=== PATIENT | female | born 1955 | race Caucasian/White ===

== ENCOUNTER 2018-04-28 13:25 | Outpatient (REF) | payer BC, SELFPAY ==
--- NOTE | 2018-04-28 11:30 | PAPFT_PTH ---
PATIENT: Brianna Bernal LOC: [facility] U#:[id number] AGE/SX: 62/F ROOM: RE04/28/[address]: FAWAD Lee : 1955 BED: DIS: 04/28/2018 SPEC #: [id number] RECD: 04/28/18 17:49 STATUS: BENEDICT REYanick #: [id number] SOM: 04/28/18 11:[address]: Jacquelyn Romo DEPT: [facility] Cytology RECD BY: Anita Guzman ENTERED: 04/28/18 17:49 SP TYPE: PAPFT OTHR DR: Omkar De Leon Tissues: 1 - CX/ENDOCX FOR PAP SMEARS Procedures: PAP THIN PREP/[facility] Screening HPV DNA PROBE Comments: [id number]
== END 2018-04-28 13:45 ==
LOC: LBN 13:25
PROVIDERS: PCP Internal Medicine; Visit Provider Nurse Practitioner Family
DX: Z12.4 Encounter for screening for malignant neoplasm of cervix (principal); Z11.51 Encounter for screening for human papillomavirus (HPV)
CPT/HCPCS: 88142; 87624

== ENCOUNTER 2018-05-13 01:44 | Outpatient (CLI) | payer BC, SELFPAY ==
--- NOTE | 2018-05-13 09:20 | DI.US_ITS ---
SYMPTOM/DIAGNOSIS: POST MENOPAUSAL BLEEDING, N95.0 PELVIC ULTRASOUND: Transabdominal and transvaginal examination was performed. No priors for comparison. The uterus measures 5.6 cm. long by 3.2 cm. AP by 3.9 cm. transverse. The endometrial stripe is within normal limits at .4 cm. No myometrial mass is seen. The right ovary measures 2.7 by 1.1 by 2.2 cm. The left ovary measures 2.3 by 1 by 2.0 cm. There is normal blood flow. No evidence of torsion is seen. No suspicious ovarian or adnexal masses, free pelvic fluid or hydronephrosis is identified. IMPRESSION: Normal pelvic ultrasound.
== END 2018-05-13 02:04 ==
PROVIDERS: PCP Internal Medicine; Visit Provider Nurse Practitioner Family
DX: N95.0 Postmenopausal bleeding (principal)
CPT/HCPCS: 76830; 76856

== ENCOUNTER 2018-05-16 12:23 | Outpatient (REF) | payer BC, SELFPAY ==
--- NOTE | 2018-05-16 11:40 | ENDOMET_PTH ---
PATIENT: Brianna Bernla LOC: [facility] U#:[id number] AGE/SX: 62/F ROOM: RE05/16/[address]: Alonzo Dickerson MD : 1955 BED: DIS: 05/16/2018 SPEC #: [id number] RECD: 05/16/18 13:08 STATUS: BENEDICT REYanick #: [id number] SOM: 05/16/18 11:[address]: Alonzo Dickerson DEPT: Surgical Specimen RECD BY: Anita Guzman ENTERED: 05/16/18 13:09 SP TYPE: Endomet OTHR DR: Omkar De Leon Tissues: 1 - ENDOMETRIUM BX/APOLLOETTE Procedures: GROSS AND MICRO LEVEL 4 Comments: [id number]
== END 2018-05-16 12:43 ==
LOC: LBN 12:23
PROVIDERS: PCP Internal Medicine; Visit Provider Obstetrics & Gynecology
DX: N85.8 Other specified noninflammatory disorders of uterus (principal); N95.0 Postmenopausal bleeding
CPT/HCPCS: 88305

== ENCOUNTER 2023-06-27 00:30 | Outpatient (RCR) | payer MEDICARE, BC, SELFPAY ==
[2023-06-13 11:06] VITALS: BP 141/74; PULSE 87; RESP 18; TEMP 36.6; O2SAT 99
[2023-06-13] MEDS: Normal Saline Flush 10 ML SYR IVP (11:09)
[2023-06-27] MEDS: Normal Saline Flush 10 ML SYR IVP (12:09)
== END 2023-07-08 23:59 | disposition home or self-care (01) ==
LOC: INF 00:30
PROVIDERS: PCP Internal Medicine; Visit Provider Internal Medicine Hematology & Oncology
DX: Z45.2 Encounter for adjustment and management of vascular access device (principal)
CPT/HCPCS: 96523

== ENCOUNTER 2023-07-12 16:25 | Outpatient (RCR) | payer MEDICARE, BC, SELFPAY ==
[2023-07-09 00:11] VITALS: BP 141/74; PULSE 87; RESP 18; TEMP 36.6
[2023-07-11 11:18] VITALS: BP 126/71; PULSE 79; RESP 18; TEMP 35.8; O2SAT 97
== END 2023-08-08 23:59 | disposition home or self-care (01) ==
LOC: INF 16:25
PROVIDERS: PCP Internal Medicine; Visit Provider Internal Medicine Hematology & Oncology
DX: D70.1 Agranulocytosis secondary to cancer chemotherapy (principal)
CPT/HCPCS: 96523

== ENCOUNTER 2023-07-25 00:02 | Outpatient (RCR) | payer MEDICARE, BC, SELFPAY ==
[2023-07-25] MEDS: Normal Saline Flush 10 ML SYR IVP (15:31)
== END 2023-08-08 23:59 | disposition home or self-care (01) ==
LOC: INF 00:02
PROVIDERS: PCP Internal Medicine; Visit Provider Internal Medicine Hematology & Oncology
DX: C25.0 Malignant neoplasm of head of pancreas (principal); D70.1 Agranulocytosis secondary to cancer chemotherapy
CPT/HCPCS: 96523

== ENCOUNTER 2023-08-29 01:07 | Outpatient (RCR) | payer MEDICARE, BC, SELFPAY ==
[2023-08-09 00:05] VITALS: BP 141/74; PULSE 87; RESP 18; TEMP 36.6
[2023-08-15] MEDS: Normal Saline Flush 10 ML SYR IVP (13:17)
[2023-08-29 12:10] VITALS: BP 131/84; PULSE 83; RESP 18; TEMP 36.6; O2SAT 98
[2023-08-29] MEDS: Normal Saline Flush 10 ML SYR IVP (12:12)
== END 2023-09-07 23:59 | disposition home or self-care (01) ==
LOC: INF 01:07
PROVIDERS: PCP Internal Medicine; Visit Provider Internal Medicine Hematology & Oncology
DX: Z45.2 Encounter for adjustment and management of vascular access device (principal); C25.0 Malignant neoplasm of head of pancreas; D70.1 Agranulocytosis secondary to cancer chemotherapy
CPT/HCPCS: 96372; 96523; Q5108

== ENCOUNTER 2023-10-03 00:11 | Outpatient (RCR) | payer MEDICARE, BC, SELFPAY ==
[2023-09-08 00:20] VITALS: BP 141/74; PULSE 87; RESP 18; TEMP 36.6
[2023-10-03] MEDS: Normal Saline Flush 10 ML SYR IVP (14:13)
== END 2023-10-08 23:59 | disposition home or self-care (01) ==
LOC: INF 00:11
PROVIDERS: PCP Internal Medicine; Visit Provider Internal Medicine Hematology & Oncology
DX: C25.0 Malignant neoplasm of head of pancreas (principal); D70.1 Agranulocytosis secondary to cancer chemotherapy; Z45.2 Encounter for adjustment and management of vascular access device
CPT/HCPCS: 36591; 96372; 96523; Q5108

== ENCOUNTER 2024-04-01 00:01 | Outpatient (RCR) | payer MEDICARE, BC, SELFPAY ==
[2024-04-01 13:15] VITALS: BP 119/80; PULSE 77; RESP 16; TEMP 36.2
[2024-04-01] MEDS: Normal Saline Flush 10 ML SYR IVP (13:18)
== END 2024-04-08 23:59 | disposition home or self-care (01) ==
LOC: INF 00:01
PROVIDERS: PCP Internal Medicine; Visit Provider Nurse Practitioner Family
DX: Z45.2 Encounter for adjustment and management of vascular access device (principal)
CPT/HCPCS: 96523

== ENCOUNTER 2024-04-29 00:18 | Outpatient (RCR) | payer MEDICARE, BC, SELFPAY ==
[2024-04-15 13:42] VITALS: BP 119/78; PULSE 73; RESP 16; TEMP 36.1; O2SAT 99
[2024-04-29] MEDS: Normal Saline Flush 10 ML SYR IVP ×2 (12:31→12:32)
== END 2024-05-09 23:59 | disposition home or self-care (01) ==
LOC: INF 00:18
PROVIDERS: PCP Internal Medicine; Visit Provider Nurse Practitioner Family
DX: Z45.2 Encounter for adjustment and management of vascular access device (principal)
CPT/HCPCS: 96523